=== PATIENT | female | born 1980 | race Caucasian/White ===

== ENCOUNTER 2019-07-10 20:46 | Emergency (ER) | payer OTHER ==
--- NOTE | 2019-07-11 01:01 | ED ---
Lower Extremity - HPI Summary HPI Summary: Patient is a 38 y/o F presenting to [facility] with complaints of RLE pain after fall. She states that she was walking in her driveway the evening of 07/10/19, around 1999, when she slipped on the icy surface and fell. Patient notes that she landed on her backside. Patient's son assisted her to standing position. She notes that she is capable of ambulating and weight-bearing with her RLE but has been avoiding doing so due to pain. On triage, pain is rated 10/10. Home medications and allergies are reviewed. - History of Current Complaint Chief Complaint: EDFall Stated Complaint: RT ANKLE INJURY PER PT Time Seen by Provider: 07/11/19 00:53 Hx Obtained From: Patient Mechanism Of Injury: Fall From A Standing Position Onset of Pain: Immediate, Hours, Prior to Arrival Onset/Duration: Still Present Severity Currently: Severe Pain Intensity: 10 Pain Scale Used: 0-10 Numeric Timing: Constant, Lasting Hours Location: Is Discrete @ - RLE Aggravating Factor(s): Ambulation, Weight Bearing - Allergies/Home Medications Allergies/Adverse Reactions: Allergies Allergy/AdvReac Type Severity Reaction Status Date / Time No Known Allergies Allergy Verified 01/14/17 13:20 PMH/Surg Hx/FS Hx/Imm Hx Endocrine/Hematology History: Denies: Hx Diabetes Cardiovascular History: Denies: Hx Hypertension, Hx Pacemaker/ICD Respiratory History: Denies: Hx Asthma Sensory History: Denies: Hx Hearing Aid Psychiatric History: Denies: Hx Panic Disorder - Cancer History Hx Chemotherapy: No Hx Radiation Therapy: No - Surgical History Surgery Procedure, Year, and Place: IUD(MIRENA); Infectious Disease History: No Infectious Disease History: Denies: Traveled Outside the [place] in Last 30 Days - Family History Known Family History: Negative: Cardiac Disease, Hypertension, Diabetes - Social History Alcohol Use: Occasionally Substance Use Type: Reports: None Smoking Status (MU): Light Every Day Tobacco Smoker Review of Systems Negative: Fever - on vitals, temp is 98 F Musculoskeletal: Other - positive - RLE pain, fall All Other Systems Reviewed And Are Negative: Yes Physical Exam - Summary Physical Exam Summary: Appearance: Well-appearing, Well-nourished, lying in bed comfortable Skin: Warm, dry, no obvious rash Eyes: sclera anicteric, no conjunctival pallor ENT: mucous membranes moist Neck: deferred Respiratory: No signs of respiratory distress Cardiovascular: Appears well perfused, pulses are nml Abdomen: deferred Musculoskeletal: Tenderness over distal fibula, mild lateral malleolar tenderness, no other deformities noted. Neurological: Awake and alert, mentation is normal, speech is fluent and appropriate Psychiatric: affect is normal, does not appear anxious or depressed Triage Information Reviewed: Yes Vital Signs On Initial Exam: Initial Vitals Temp Pulse Resp BP Pulse Ox 98 F 92 18 134/83 98 07/10/19 20:48 07/10/19 20:48 07/10/19 20:48 07/10/19 20:48 07/10/19 20:48 Vital Signs Reviewed: Yes Procedures - Procedure Summary Procedure Summary: OCL fiberglass splint was applied to RLE. Patient was neurovascularly intact pre and post procedure, no complications during procedure. - Sedation Patient Received Moderate/Deep Sedation with Procedure: No - Splinting Right Lower Extremity Location: RLE Hand-Made Type: fiberglass Splint: OCL splint Pre-Proc Neuro Vasc Exam: normal Post-Proc Neuro Vasc Exam: normal Splint Applied by Provider: Alen Bright - Vital Signs Vital Signs Temp Pulse Resp BP Pulse Ox 07/10/19 23:01 98.8 F 18 20 159/88 98 07/10/19 20:48 98 F 92 18 134/83 98 - Laboratory Lab Statement: Any lab studies that have been ordered have been reviewed, and results considered in the medical decision making process. - Radiology RIGHT ANKLE X-RAY Radiology Interpretation Completed By: ED Physician Summary of Radiographic Findings: Right ankle x-ray shows communicated distal fibular shaft fracture with minimal displacement, pending official report. Lower Extremity Course/Dx - Course Course Of Treatment: Patient is a 38 y/o F presenting to [facility] with complaints of RLE pain after fall. Right ankle x-ray shows communicated distal fibular shaft fracture with minimal displacement. On exam, there is tenderness over distal fibula, mild lateral malleolar tenderness, no other deformities noted. OCL fiberglass splint was applied to RLE. Patient was neurovascularly intact pre and post procedure, no complications during procedure. She was given crutches and discharged to home with ortho follow up. - Diagnoses Provider Diagnoses: Fracture of right fibula Discharge ED - Sign-Out/Discharge Documenting (check all that apply): Patient Departure - discharge - Discharge Plan Condition: Stable Disposition: HOME Patient Education Materials: Ankle Fracture (ED) Referrals: Kevin Solorzano MD [Medical Doctor] - Additional Instructions: You can take the splint off for bathing but otherwise leave it on. Call the orthopedic office in the morning and they will schedule you for an appointment, probably later this week or early next week at which point they will probably put you in a cast. I doubt this will require surgery, it should heal with cast immobilization. - Billing Disposition and Condition Condition: STABLE Disposition: Home - Attestation Statements Document Initiated by Gail: Yes Documenting Krystalibe: YAZAN OROPEZA Provider For Whom Gail is Documenting (Include Credential): ALEN BRIGHT MD Scribe Attestation: I, YAZAN OROPEZA, scribed for ALEN BRIGHT MD on 07/12/19 at 0502. Scribe Documentation Reviewed: Yes Provider Attestation: The documentation as recorded by the YAZAN rivera accurately reflects the service I personally performed and the decisions made by me, ALEN BRIGHT MD Status of Scribe Document: Viewed
[2019-07-11 01:22] VITALS: BP 135/96
== END 2019-07-11 01:21 | disposition home or self-care (01) ==
LOC: ED 20:46
DX: S82.401A Unspecified fracture of shaft of right fibula, initial encounter for closed fracture (principal); W19.XXXA Unspecified fall, initial encounter; Y92.9 Unspecified place or not applicable; M25.571 Pain in right ankle and joints of right foot; F17.210 Nicotine dependence, cigarettes, uncomplicated
CPT/HCPCS: 99282

== ENCOUNTER 2019-07-17 10:53 | Day surgery (SDC) | payer OTHER ==
[~2019-07-17 10:53] MED LIST: Acetaminophen TAB* 325 MG PO ONE; Buffered Lidocaine 1% SYRIN* 1 ML/SYRINGE INTRADERM ONE; Famotidine IV* 10 MG/ML 2 ML (20 mg) IV ONE; Lactated Ringers 1000 ML Bag* 1,000 ML IV SCH
[2019-07-17] MEDS ORDERED: Gabapentin CAP(*) 300 MG ONE ×2 (11:32→13:48)
[2019-07-17] MEDS ORDERED: ceFAZolin 2 GM PREMIX in ORs 2 GM/50 ML BAG ONE (11:32)
[2019-07-17] MEDS ORDERED: Acetaminophen TAB* 325 MG ONE (11:32)
[2019-07-17] MEDS ORDERED: Famotidine IV* 10 MG/ML 2 ML (20 mg) ONE (11:33)
[2019-07-17] MEDS: Gabapentin CAP(*) 300 MG PO ONE ×2 (11:44→13:51)
[2019-07-17] MEDS ORDERED: Midazolam* 1 MG/ML 2 ML VIAL (2 MG) ONE (11:44)
[2019-07-17] MEDS ORDERED: fentaNYL* 50 MCG/ML 2 ML VIAL (100 MCG VIAL) ONE ×4 (11:44→13:48)
[2019-07-17] MEDS ORDERED: Bupivacaine 0.5% SDV PF* 30ML VIAL ONE (11:50)
[2019-07-17] MEDS ORDERED: Lidocaine 2% PF * 5 ML VIAL ONE (12:04)
[2019-07-17] MEDS ORDERED: Propofol* 10 MG/ML 20 ML BTL ONE ×2 (12:05→13:25)
[2019-07-17] MEDS ORDERED: Ondansetron INJ* 2 MG/ML VIAL ONE (12:05)
[2019-07-17] MEDS ORDERED: Dexamethasone IV* 4 MG/ML 1 ML (4 MG) ONE (12:05)
[2019-07-17] MEDS ORDERED: Ketorolac INJ* 30 MG/ML 1 ML VIAL ONE (12:05)
[2019-07-17] MEDS ORDERED: Acetaminophen IV 1GM/100ML * 100 ML ONE (12:32)
[2019-07-17] MEDS ORDERED: Naloxone* 0.4 MG/ML 1 ML VIAL IV PRN (13:12)
[2019-07-17] MEDS ORDERED: Levalbuterol 0.63MG/3ML NEB* UNIT OF USE INH PRN (13:12)
[2019-07-17] MEDS ORDERED: DiMENhydriNATE IV* 50 MG/ML VIAL IV PUSH PRN (13:12)
[2019-07-17] MEDS ORDERED: diPHENhydraMINE IV* 50 MG/ML 1 ml VIAL (BENADRYL) IV PRN (13:12)
[2019-07-17] MEDS ORDERED: HYDROcodone/ACETAMIN 5-325 MG* 1 TAB PO PRN ×2 (13:12)
[2019-07-17] MEDS ORDERED: PROCHLORPERAZINE INJ 5 MG/ML 2 ML VIAL IV PRN (13:12)
[2019-07-17] MEDS ORDERED: Ondansetron INJ* 2 MG/ML VIAL IV PRN (13:12)
[2019-07-17] MEDS ORDERED: oxyCODONE ORAL.SOLN* 5 MG/5 ML UDC ONE (13:51)
[2019-07-17] MEDS ORDERED: oxyCODONE ORAL.SOLN* 5 MG/5 ML UDC PO ONE (13:51)
--- NOTE | 2019-07-17 13:53 | OP ---
Operative Report - Blank - Operative Report Date of Operation: 07/17/19 Note: PATIENT: Margo Zavaleta DATE OF : 1980 DATE OF SURGERY: 07/17/2019 SURGEON: Ryan Floyd MD LEASE PURCHASE DRIVER: XENIA Velasquez, whos assistance was necessary for positioning, retraction, help with instrumentation, and closure. ANESTHESIOLOGIST: Dr. Caldwell PREOPERATIVE DIAGNOSIS: Right ankle fracture and disruption of the distal tibia- fibula syndesmosis. POSTOPERATIVE DIAGNOSIS: Right ankle fracture and disruption of the distal tibia -fibula syndesmosis. OPERATION: 1. Right ankle lateral malleolar fracture open reduction and internal fixation. 2. Right distal tibia-fibula syndesmosis open reduction and internal fixation. ANESTHESIA: General IMPLANTS: Arthrex ankle fracture set plate and screws and syndesmotic tightropes TOURNIQUET TIME: About 1 hour with a well-padded thigh tourniquet at 250mmHg SPECIMENS: none ESTIMATED BLOOD LOSS: minimal COMPLICATIONS: none STATUS: Stable from the operating room to the recovery room and then home. INDICATIONS FOR PROCEDURE: Margo sustained a fall with the above injury. Both operative and non operative treatment alternatives were reviewed. Further, the nature and risks of surgery were reviewed in careful detail, in the office as well as the pre-operative holding area. Our discussions regarding the risks of surgery included, but were not limited to, infection, wound problems, nerve injury, neuroma, RSD, persistent symptoms, blood clot, nonunion, malunion, post-traumatic arthritis, hardware failure, failure of the surgery, and even the remote chance of catastrophic complication. DESCRIPTION OF PROCEDURE: The patient was seen in the preoperative holding unit and informed written consent was obtained. The appropriate extremity was marked. The patient was then brought to the operating room and carefully positioned on the operating room table. Anesthesia was induced. All bony prominences were padded with great care. A well-padded thigh tourniquet was placed. A chlorhexidine based pre- scrub was performed followed by a chloraprep prep and drape in standard sterile fashion. A surgical safety pause was then conducted in which we confirmed the appropriate patient, extremity, planned procedure, availability of equipment, indication and administration of prophylactic antibiotics, and DVT prophylaxis in the form of a compression boot on the non-surgical extremity. I began with Esmarch exsanguination of the limb and inflated the tourniquet. I then utilized a laterally based incision overlying the distal fibula. Great care was taken to protect the superficial peroneal nerve, which was not visualized within the field of view. I dissected down through the soft tissue layers to expose the distal fibula. I then exposed the fractures. Fracture hematoma was removed. I gained a reduction utilizing pointed reduction clamps and then held this provisionally with K-wires. I placed an arthrex distal fibula plate laterally and then confirmed the reduction and the position of the plate fluoroscopically. I placed screws to hold the plate to the bone. The provisional fixation was removed and then I again confirmed fluoroscopically the appropriate position of the plate and screw lengths. At this point, I performed a stress fluoroscopic examination. I utilized a Cotton test, as well as an external rotation stress test, to evaluate the distal tib-fib syndesmosis. There was syndesmotic instability appreciated fluoroscopically. I then explored the syndesmosis directly and again appreciated abnormal motion. Therefore, I proceeded with open reduction and internal fixation of the distal tib-fib syndesmosis. We held the syndesmosis reduced and were pleased with syndesmotic reduction both clinically under direct visualization, as well as fluoroscopically. I utilized 2 syndesmotic tightropes. Final fluoroscopic images were obtained demonstrating a good reduction of both the fracture and the syndesmosis. At this point, we irrigated copiously and then closed in layers meticulously utilizing 3-0 Monocryl for the deep and subdermal layers and 3-0 Nylon for the skin. A sterile dressing was then applied followed by a splint with the ankle in a neutral position. The patient was then awakened from anesthesia and transferred to the recovery room in stable condition. There were no complications. All needle and sponge counts were correct at the end of the case. ATTESTATION: I attest I was present and scrubbed and performed the critical portions of the procedure myself. POSTOPERATIVE PLAN: The postop plan is for [id number] for an anticipated duration of 6 weeks. Follow-up will be in 2 weeks. At that time we will likely transition into a [id number] short leg cast. We will use aspirin for DVT prophylaxis.
[2019-07-17] MEDS: fentaNYL* 50 MCG/ML 2 ML VIAL (100 MCG VIAL) IV PRN ×2 (13:54→14:13)
[2019-07-17 15:03] VITALS: BP 163/83
== END 2019-07-17 15:37 | disposition home or self-care (01) ==
LOC: OREAST 10:53
PROVIDERS: ATTEND Orthopaedic Surgery
DX: S82.61XA Displaced fracture of lateral malleolus of right fibula, initial encounter for closed fracture (principal); M25.371 Other instability, right ankle; W00.0XXA Fall on same level due to ice and snow, initial encounter; Y92.9 Unspecified place or not applicable; F17.210 Nicotine dependence, cigarettes, uncomplicated
CPT/HCPCS: 76000; 81025; A9270-GY; C1713; C1776; J0690; J1100; J1885; J2250; J2405; J2704; J3010; J3490